=== PATIENT | female | born 1955 | race Asian ===

== ENCOUNTER 2019-07-24 14:08 | Inpatient (IN) | payer MEDICARE, OTHER ==
[~2019-07-24] VITALS: Ht 149.9 cm; Wt 44.0 kg
[2019-07-24] MEDS ORDERED: SITA25 PO (14:12)
[2019-07-24] MEDS ORDERED: AMLO2.5T4 PO (14:12)
[2019-07-24] MEDS ORDERED: METO25 PO (14:12)
[2019-07-24 14:21] LABS: GLUCOSE,POINT OF CARE 219 MG/DL (70-110)
[2019-07-24 15:05] LABS: BASOPHILS % (AUTO) 0.3 % (0.0-2.0); EOSINOPHILS % (AUTO) 0.2 % (1.0-6.0); HEMATOCRIT 26.5 % (36-46); HEMOGLOBIN 8.5 g/dL (12.0-16.0); LYMPHOCYTES # (AUTO) 0.9 K/uL (1.0-4.8); LYMPHOCYTES % (AUTO) 7.8 % (22.0-44.0); MEAN CORPUSCULAR HEMOGLOBIN 27.4 pg (26.0-34.0); MEAN CORPUSCULAR HGB CONC 32.2 G/dL (31.0-37.0); MEAN CORPUSCULAR VOLUME 85 fL (80-100); MONOCYTES # (AUTO) 0.9 K/uL (0.1-1.0); MONOCYTES % (AUTO) 7.7 % (2.0-9.0); NEUTROPHILS # (AUTO) 9.8 K/uL (1.8-7.7); PLATELET COUNT (AUTO) 507 K/uL (150-450); RED BLOOD CELL COUNT(AUTO) 3.11 MIL/uL (4.00-5.20); RED CELL DISTRIBUTION WIDTH 16.3 % (11.5-14.5)
[2019-07-24 15:15] LABS: CALCIUM, TOTAL 9.5 mg/dL (8.8-10.5); CREATININE 1.72 mg/dL (0.60-1.30); POTASSIUM 4.2 mmol/L (3.5-5.1)
[2019-07-24 15:21] LABS: ALBUMIN 2.7 g/dL (3.4-5.0); BILIRUBIN,TOTAL 0.3 mg/dL (0.1-1.0); TOTAL PROTEIN, SERUM 8.5 g/dL (6.4-8.2)
[2019-07-24] MEDS ORDERED: ASPIRIN 325 MG TABLET PO ONE (16:00)
[2019-07-24 16:31] LABS: APPEARANCE,URINE CLOUDY (CLEAR); BILIRUBIN,URINE NEGATIVE (NEGATIVE); GLUCOSE, URINE (UA) NEGATIVE (NEGATIVE); KETONES,URINE NEGATIVE (NEGATIVE); LEUKOCYTE ESTERASE ,URINE MODERATE (NEGATIVE); NITRATE,URINE NEGATIVE (NEGATIVE); OCCULT BLOOD,URINE MODERATE (NEGATIVE); PH,URINE 5.5 (5.0-8.0); PROTEIN,URINE SEE CONFIRM (NEGATIVE); UROBILINOGEN,URINE 0.2 mg/dL (<=1.0)
[2019-07-24 16:41] LABS: SULFOSALICYLIC ACID,URINE 2+ (Negative)
[2019-07-24 16:42] LABS: BACTERIA,URINE Many /HPF (None Seen); SQUAMOUS EPITHELIAL CELL,UR Many /LPF (None Seen); WBC,URINE 26-50 /HPF (0-5)
[2019-07-24] MEDS ORDERED: CefTRIAXone 1 GM/DEXTROSE 50 ML IV ONE (16:45)
[2019-07-24] MEDS ORDERED: SODIUM CHLORIDE 0.9% 1,000 ML IV ONE ×2 (16:45→20:30)
[2019-07-24] MEDS ORDERED: 0.9% SODIUM CHLORIDE 10 ML SYRINGE IVP PRN (17:15)
[2019-07-24] MEDS ORDERED: ACETAMINOPHEN 325 MG TABLET PO PRN ×2 (17:15→20:30)
[2019-07-24] MEDS ORDERED: ONDANSETRON HCL 4 MG/2 ML VIAL IVP PRN ×2 (17:15→20:30)
[2019-07-24 20:21] VITALS: BP 138/70
[2019-07-24] MEDS ORDERED: ZOLPIDEM TARTRATE 5 MG TABLET PO PRN (20:30)
[2019-07-24] MEDS ORDERED: MAGNESIUM HYDROXIDE SUSPENSION 30 ML UDCUP PO PRN (20:30)
[2019-07-24] MEDS ORDERED: MORPHINE SULFATE 2 MG/ML SYRINGE IVP PRN (20:30)
[2019-07-24] MEDS ORDERED: DEXTROSE 50%-WATER 25 GM/50 ML SYRINGE IVP PRN (20:30)
[2019-07-24] MEDS ORDERED: BISACODYL 10 MG RECTAL RECTAL SUPPOSITORY PR PRN (20:30)
[2019-07-24] MEDS ORDERED: LOSA1TAB40 PO (20:46)
[2019-07-24] MEDS ORDERED: GLYB5 PO (20:46)
[2019-07-24] MEDS ORDERED: METOPROLOL TARTRATE 25 MG TABLET PO SCH (21:00)
[2019-07-24] MEDS ORDERED: ATOR10TA84 PO (21:02)
[2019-07-24] MEDS ORDERED: LOSA25TA41 PO (21:02)
[2019-07-24] MEDS: DOCUSATE SODIUM 100 MG CAPSULE PO SCH (22:11)
[2019-07-24] MEDS ORDERED: AmLODIPine BESYLATE 2.5 MG TABLET PO SCH (22:15)
[2019-07-24] MEDS ORDERED: ATORVASTATIN CALCIUM 10 MG TABLET PO SCH (22:15)
[2019-07-24 23:30] LABS: GLUCOMETER DEV NAME(LOC) 5S.1; GLUCOSE,POINT OF CARE 131 MG/DL (70-110)
[2019-07-24 23:34] VITALS: BP 131/59
[2019-07-25 04:31] VITALS: BP 136/67
[2019-07-25] MEDS: HYDROCODONE/ACETAMINOPHEN 5-325 MG TABLET PO PRN (04:47)
[2019-07-25 06:36] LABS: GLUCOMETER DEV NAME(LOC) 5S.1; GLUCOSE,POINT OF CARE 143 MG/DL (70-110)
[2019-07-25 06:46] LABS: BASOPHILS % (AUTO) 0.4 % (0.0-2.0); EOSINOPHILS % (AUTO) 0.4 % (1.0-6.0); HEMATOCRIT 23.9 % (36-46); HEMOGLOBIN 7.8 g/dL (12.0-16.0); LYMPHOCYTES # (AUTO) 0.7 K/uL (1.0-4.8); LYMPHOCYTES % (AUTO) 7.1 % (22.0-44.0); MEAN CORPUSCULAR HEMOGLOBIN 27.6 pg (26.0-34.0); MEAN CORPUSCULAR HGB CONC 32.8 G/dL (31.0-37.0); MEAN CORPUSCULAR VOLUME 84 fL (80-100); MONOCYTES % (AUTO) 10.8 % (2.0-9.0); NEUTROPHILS # (AUTO) 7.8 K/uL (1.8-7.7); NEUTROPHILS % (AUTO) 81.3 % (40.0-70.0); PLATELET COUNT (AUTO) 509 K/uL (150-450); RED BLOOD CELL COUNT(AUTO) 2.84 MIL/uL (4.00-5.20); RED CELL DISTRIBUTION WIDTH 16.3 % (11.5-14.5)
[2019-07-25 07:09] LABS: ALBUMIN 2.3 g/dL (3.4-5.0); BILIRUBIN,TOTAL 0.3 mg/dL (0.1-1.0); CALCIUM, TOTAL 9.2 mg/dL (8.8-10.5); CREATININE 1.33 mg/dL (0.60-1.30); POTASSIUM 4.9 mmol/L (3.5-5.1); TOTAL PROTEIN, SERUM 7.7 g/dL (6.4-8.2)
[2019-07-25] MEDS: HEPARIN SODIUM,PORCINE 5,000 UNITS/ML VIAL SQ SCH ×3 (08:00→21:00)
[2019-07-25 08:01] VITALS: BP 145/95
[2019-07-25] MEDS: PANTOPRAZOLE SODIUM 40 MG DR TABLET PO SCH (08:19)
[2019-07-25] MEDS: METOPROLOL TARTRATE 25 MG TABLET PO SCH ×2 (08:20→21:57)
[2019-07-25] MEDS: AmLODIPine BESYLATE 10 MG TABLET PO SCH (08:20)
[2019-07-25] MEDS: DOCUSATE SODIUM 100 MG CAPSULE PO SCH ×2 (08:22→21:57)
[2019-07-25] MEDS ORDERED: AmLODIPine BESYLATE 2.5 MG TABLET PO SCH (09:00)
[2019-07-25] MEDS ORDERED: AMLO10TA7 PO (11:18)
[2019-07-25 11:40] VITALS: BP 133/70
[2019-07-25] MEDS: ASPIRIN 325 MG TABLET PO SCH (11:51)
[2019-07-25 16:05] VITALS: BP 131/59
[2019-07-25] MEDS: CefTRIAXone 1 GM/DEXTROSE 50 ML IV SCH (17:03)
[2019-07-25 20:31] VITALS: BP 149/65
[2019-07-25] MEDS: ATORVASTATIN CALCIUM 40 MG TABLET PO SCH (21:57)
[2019-07-25 23:57] VITALS: BP 124/60
[2019-07-26 04:59] VITALS: BP 136/65
[2019-07-26 06:27] LABS: BASOPHILS % (AUTO) 0.5 % (0.0-2.0); EOSINOPHILS % (AUTO) 0.7 % (1.0-6.0); HEMATOCRIT 24.3 % (36-46); HEMOGLOBIN 7.8 g/dL (12.0-16.0); LYMPHOCYTES % (AUTO) 8.4 % (22.0-44.0); MEAN CORPUSCULAR HEMOGLOBIN 27.3 pg (26.0-34.0); MEAN CORPUSCULAR HGB CONC 32.1 G/dL (31.0-37.0); MEAN CORPUSCULAR VOLUME 85 fL (80-100); MONOCYTES # (AUTO) 1.1 K/uL (0.1-1.0); MONOCYTES % (AUTO) 9.1 % (2.0-9.0); NEUTROPHILS # (AUTO) 9.9 K/uL (1.8-7.7); NEUTROPHILS % (AUTO) 81.3 % (40.0-70.0); PLATELET COUNT (AUTO) 570 K/uL (150-450); RED BLOOD CELL COUNT(AUTO) 2.86 MIL/uL (4.00-5.20)
[2019-07-26 06:41] LABS: CALCIUM, TOTAL 9.4 mg/dL (8.8-10.5); CREATININE 1.4 mg/dL (0.60-1.30); POTASSIUM 4.7 mmol/L (3.5-5.1)
[2019-07-26 07:51] VITALS: BP 140/65
[2019-07-26] MEDS: ASPIRIN 325 MG TABLET PO SCH (08:22)
[2019-07-26] MEDS: DOCUSATE SODIUM 100 MG CAPSULE PO SCH ×2 (08:22→20:22)
[2019-07-26] MEDS: PANTOPRAZOLE SODIUM 40 MG DR TABLET PO SCH (08:23)
[2019-07-26] MEDS: AmLODIPine BESYLATE 10 MG TABLET PO SCH (08:23)
[2019-07-26] MEDS: METOPROLOL TARTRATE 25 MG TABLET PO SCH ×2 (08:23→20:22)
[2019-07-26] MEDS: HEPARIN SODIUM,PORCINE 5,000 UNITS/ML VIAL SQ SCH ×2 (08:24→21:00)
[2019-07-26 11:29] VITALS: BP 132/59
[2019-07-26 13:01] LABS: GLUCOMETER DEV NAME(LOC) 5S.1; GLUCOSE,POINT OF CARE 120 MG/DL (70-110)
[2019-07-26 13:01] LABS: GLUCOMETER DEV NAME(LOC) 5S.1; GLUCOSE,POINT OF CARE 219 MG/DL (70-110)
[2019-07-26] MEDS: CefTRIAXone 1 GM/DEXTROSE 50 ML IV SCH (15:04)
[2019-07-26 15:19] VITALS: BP 148/72
[2019-07-26 19:45] VITALS: BP 143/63
[2019-07-26] MEDS: ATORVASTATIN CALCIUM 40 MG TABLET PO SCH (20:22)
[2019-07-26] MEDS: HYDROCODONE/ACETAMINOPHEN 5-325 MG TABLET PO PRN (21:46)
[2019-07-27] VITALS (10 sets, daily range): BP systolic 118–205; BP diastolic 54–111
[2019-07-27 07:18] LABS: BASOPHILS % (AUTO) 0.6 % (0.0-2.0); EOSINOPHILS % (AUTO) 0.6 % (1.0-6.0); HEMOGLOBIN 8.3 g/dL (12.0-16.0); LYMPHOCYTES # (AUTO) 0.8 K/uL (1.0-4.8); LYMPHOCYTES % (AUTO) 6.9 % (22.0-44.0); MEAN CORPUSCULAR HEMOGLOBIN 28.1 pg (26.0-34.0); MEAN CORPUSCULAR HGB CONC 33.1 G/dL (31.0-37.0); MEAN CORPUSCULAR VOLUME 85 fL (80-100); MONOCYTES # (AUTO) 0.9 K/uL (0.1-1.0); MONOCYTES % (AUTO) 7.6 % (2.0-9.0); NEUTROPHILS % (AUTO) 84.3 % (40.0-70.0); PLATELET COUNT (AUTO) 657 K/uL (150-450); RED BLOOD CELL COUNT(AUTO) 2.95 MIL/uL (4.00-5.20)
[2019-07-27 07:55] LABS: CREATININE 1.67 mg/dL (0.60-1.30); MAGNESIUM 2.1 mg/dL (1.80-2.40); POTASSIUM 4.3 mmol/L (3.5-5.1)
[2019-07-27 08:11] LABS: GLUCOMETER DEV NAME(LOC) 5S.1; GLUCOSE,POINT OF CARE 205 MG/DL (70-110)
[2019-07-27] MEDS: HEPARIN SODIUM,PORCINE 5,000 UNITS/ML VIAL SQ SCH ×2 (09:00→21:00)
[2019-07-27] MEDS: AmLODIPine BESYLATE 10 MG TABLET PO SCH (09:10)
[2019-07-27] MEDS: PANTOPRAZOLE SODIUM 40 MG DR TABLET PO SCH (09:10)
[2019-07-27] MEDS: METOPROLOL TARTRATE 25 MG TABLET PO SCH ×2 (09:10→20:49)
[2019-07-27] MEDS: ASPIRIN 325 MG TABLET PO SCH (09:10)
[2019-07-27] MEDS: DOCUSATE SODIUM 100 MG CAPSULE PO SCH ×2 (09:10→20:49)
[2019-07-27] MEDS: HYDROCODONE/ACETAMINOPHEN 5-325 MG TABLET PO PRN (09:16)
[2019-07-27] MEDS ORDERED: SODIUM BICARBONATE 50 MEQ/50 ML VIAL ONE (11:12)
[2019-07-27] MEDS ORDERED: LIDOCAINE/PF 1% 30 ML VIAL ONE (11:12)
[2019-07-27] MEDS ORDERED: HEPARIN SODIUM 1000 UNITS/NS 1,000 ML ONE (11:13)
[2019-07-27] MEDS ORDERED: IOHEXOL 300 MG/ML 150 ML VIAL ONE (11:13)
[2019-07-27 12:02] LABS: GLUCOMETER DEV NAME(LOC) 5S.2A; GLUCOSE,POINT OF CARE 162 MG/DL (70-110)
[2019-07-27 12:02] LABS: GLUCOMETER DEV NAME(LOC) 5S.2A; GLUCOSE,POINT OF CARE 180 MG/DL (70-110)
[2019-07-27 12:02] LABS: GLUCOMETER DEV NAME(LOC) 5S.2A; GLUCOSE,POINT OF CARE 188 MG/DL (70-110)
[2019-07-27] MEDS ORDERED: MIDAZOLAM HCL 2 MG/2 ML VIAL ONE (12:19)
[2019-07-27] MEDS ORDERED: FentaNYL CITRATE-PF 100 MCG/2 ML VIAL ONE (12:19)
[2019-07-27] MEDS ORDERED: HEPARIN SODIUM 1000 UNITS/NS 1,000 ML IARTER ONE (12:26)
[2019-07-27] MEDS ORDERED: SODIUM CHLORIDE 0.9% 500 ML IV ONE (12:26)
[2019-07-27] MEDS ORDERED: SODIUM BICARBONATE 150 MEQ in DEXTROSE 5%-WATER 850 ML IV ONE (12:30)
[2019-07-27] MEDS ORDERED: MIDAZOLAM HCL 2 MG/2 ML VIAL IVP ONE (12:30)
[2019-07-27] MEDS ORDERED: IOHEXOL 300 MG/ML 150 ML VIAL IARTER ONE (12:30)
[2019-07-27] MEDS ORDERED: LIDOCAINE 1% 30 ML/SOD BICARB 8.4% 4 ML SQ ONE (12:30)
[2019-07-27] MEDS ORDERED: FentaNYL CITRATE-PF 100 MCG/2 ML VIAL IVP ONE (12:30)
[2019-07-27] MEDS: CefTRIAXone 1 GM/DEXTROSE 50 ML IV SCH (16:26)
[2019-07-27] MEDS: ATORVASTATIN CALCIUM 40 MG TABLET PO SCH (20:49)
[2019-07-28 04:59] VITALS: BP 144/69
[2019-07-28 07:21] VITALS: BP 127/63
[2019-07-28] MEDS: PANTOPRAZOLE SODIUM 40 MG DR TABLET PO SCH (08:53)
[2019-07-28] MEDS: ASPIRIN 325 MG TABLET PO SCH (08:53)
[2019-07-28] MEDS: AmLODIPine BESYLATE 10 MG TABLET PO SCH (08:54)
[2019-07-28] MEDS: DOCUSATE SODIUM 100 MG CAPSULE PO SCH ×2 (08:55→21:02)
[2019-07-28] MEDS: METOPROLOL TARTRATE 25 MG TABLET PO SCH ×2 (08:55→21:02)
[2019-07-28] MEDS: HEPARIN SODIUM,PORCINE 5,000 UNITS/ML VIAL SQ SCH ×2 (08:57→21:00)
[2019-07-28 09:16] LABS: GLUCOMETER DEV NAME(LOC) 5S.1; GLUCOSE,POINT OF CARE 259 MG/DL (70-110)
[2019-07-28 11:16] VITALS: BP 135/60
[2019-07-28] MEDS: INSULIN LISPRO 100 UNITS/ML SQ PRN ×2 (12:27→18:33)
[2019-07-28] MEDS ORDERED: LACTULOSE 20 GM/30 ML SOLUTION UDCUP PO PRN (13:30)
[2019-07-28 15:11] VITALS: BP 148/55
[2019-07-28] MEDS: CefTRIAXone 1 GM/DEXTROSE 50 ML IV SCH (16:48)
[2019-07-28] MEDS ORDERED: SODIUM CHLORIDE 0.9% 100 ML ONE (16:54)
[2019-07-28 20:15] VITALS: BP 133/64
[2019-07-28 20:55] LABS: GLUCOMETER DEV NAME(LOC) 5S.2A; GLUCOSE,POINT OF CARE 204 MG/DL (70-110)
[2019-07-28 20:56] LABS: GLUCOMETER DEV NAME(LOC) 5S.2A; GLUCOSE,POINT OF CARE 169 MG/DL (70-110)
[2019-07-28] MEDS: ATORVASTATIN CALCIUM 40 MG TABLET PO SCH (21:02)
[2019-07-28] MEDS: HYDROCODONE/ACETAMINOPHEN 5-325 MG TABLET PO PRN (23:59)
[2019-07-29 00:13] VITALS: BP 127/59
[2019-07-29 04:33] VITALS: BP 125/59
[2019-07-29 07:32] VITALS: BP 137/66
[2019-07-29] MEDS: HEPARIN SODIUM,PORCINE 5,000 UNITS/ML VIAL SQ SCH (09:00)
[2019-07-29] MEDS: ASPIRIN 325 MG TABLET PO SCH (09:34)
[2019-07-29] MEDS: AmLODIPine BESYLATE 10 MG TABLET PO SCH (09:35)
[2019-07-29] MEDS: PANTOPRAZOLE SODIUM 40 MG DR TABLET PO SCH (09:35)
[2019-07-29] MEDS: METOPROLOL TARTRATE 25 MG TABLET PO SCH (09:35)
[2019-07-29] MEDS: DOCUSATE SODIUM 100 MG CAPSULE PO SCH (09:35)
[2019-07-29 10:45] LABS: GLUCOMETER DEV NAME(LOC) 5S.1; GLUCOSE,POINT OF CARE 273 MG/DL (70-110)
[2019-07-29 10:45] LABS: GLUCOMETER DEV NAME(LOC) 5S.1; GLUCOSE,POINT OF CARE 254 MG/DL (70-110)
[2019-07-29 10:46] LABS: GLUCOMETER DEV NAME(LOC) 5S.1; GLUCOSE,POINT OF CARE 170 MG/DL (70-110)
[2019-07-29 10:56] VITALS: BP 143/70
[2019-07-29] MEDS: INSULIN LISPRO 100 UNITS/ML SQ PRN (12:27)
[2019-07-29] MEDS ORDERED: ASPI81TA39 PO (13:21)
[2019-07-29 21:25] LABS: GLUCOMETER DEV NAME(LOC) 5S.1; GLUCOSE,POINT OF CARE 334 MG/DL (70-110)
== END 2019-07-29 14:50 | disposition home or self-care (01) | DRG 280 ==
LOC: EMS 14:10 → 5S 18:33
PROVIDERS: ADMIT Internal Medicine; ATTEND Internal Medicine
PROC: 4A023N7 Measurement of Cardiac Sampling and Pressure, Left Heart, Percutaneous Approach (ICD-10-PCS; principal; 2019-07-27)
PROC: B2111ZZ Fluoroscopy of Multiple Coronary Arteries using Low Osmolar Contrast (ICD-10-PCS; 2019-07-27)
PROC: B41F1ZZ Fluoroscopy of Right Lower Extremity Arteries using Low Osmolar Contrast (ICD-10-PCS; 2019-07-27)
DX: I21.4 Non-ST elevation (NSTEMI) myocardial infarction (principal); E43 Unspecified severe protein-calorie malnutrition; N17.9 Acute kidney failure, unspecified; N13.6 Pyonephrosis; Z68.1 Body mass index [BMI] 19.9 or less, adult; I25.10 Atherosclerotic heart disease of native coronary artery without angina pectoris; N18.9 Chronic kidney disease, unspecified; E11.22 Type 2 diabetes mellitus with diabetic chronic kidney disease; I12.9 Hypertensive chronic kidney disease with stage 1 through stage 4 chronic kidney disease, or unspecified chronic kidney disease; E11.40 Type 2 diabetes mellitus with diabetic neuropathy, unspecified; E11.21 Type 2 diabetes mellitus with diabetic nephropathy; B96.20 Unspecified Escherichia coli [E. coli] as the cause of diseases classified elsewhere; D63.8 Anemia in other chronic diseases classified elsewhere; B96.89 Other specified bacterial agents as the cause of diseases classified elsewhere; Z79.4 Long term (current) use of insulin; Z82.49 Family history of ischemic heart disease and other diseases of the circulatory system; Z87.440 Personal history of urinary (tract) infections; Z95.5 Presence of coronary angioplasty implant and graft
CPT/HCPCS: 74176; 74178; 82271; 83735; 87086; 93005; 93306; 99291; J0696; J1644; J2250; J3010; J3490; J7030; J7050; J7060; Q9967